=== PATIENT | female | born 1980 | race Caucasian/White ===

== ENCOUNTER 2021-04-10 15:46 | Outpatient (CLI) | payer BC ==
[2021-04-10 18:30] LABS: Hemoglobin 13.3 g/dL (12.0-15.5); Mean Corpuscular HGB CONC 34.1 g/dL (32.0-36.0); Mean Corpuscular Hemoglobin 30.1 pg (27.0-33.0); Mean Corpuscular Volume 88.2 fl (81.6-98.3); Mean Platelet Volume 9.7 fl (7.4-10.4); Platelet Count 291 10x3/uL (150-450); RBC Distribution Width 12.4 % (11.5-14.5); Red Blood Cell (RBC) Count 4.42 10x6/uL (3.90-5.03)
[2021-04-10 18:34] LABS: BHCG - Serum Negative (NEGATIVE); Pregs Control Background? CLEAR/WHITE (CLR/WHITE); Pregs Control Bar Appear? YES (CONTROL BAR)
[2021-04-10 18:36] LABS: Anion Gap 15 mmol/L (10-20); BUN (Urea Nitrogen) 14 mg/dL (7.0-18.7); Calc. Creatinine Clearance 0 mL/min (70-130); Calcium 9.1 mg/dL (7.8-10.44); Carbon Dioxide 25 mmol/L (22-29); Chloride 105 mmol/L (98-107); Glucose 90 mg/dL (70-105); Potassium 4.3 mmol/L (3.5-5.1); Sodium 141 mmol/L (136-145)
[2021-04-11 00:46] LABS: SARS-CoV-2 PCR by NAA Not Detected (NotDetected)
== END 2021-04-10 15:47 | disposition home or self-care (01) ==
LOC: CSHLAB 15:46
PROVIDERS: ATTEND Podiatrist Foot & Ankle Surgery
DX: Z01.812 Encounter for preprocedural laboratory examination (principal); Z20.822 Contact with and (suspected) exposure to COVID-19; T84.197D Other mechanical complication of internal fixation device of bone of left lower leg, subsequent encounter; M25.775 Osteophyte, left foot
CPT/HCPCS: 80048; 84703; 85027; 87635; 93005; 93010; U0003; U0005

== ENCOUNTER 2021-04-15 11:46 | Day surgery (SDC) | payer BC ==
[2021-04-14 09:37] VITALS: BMI 32.5
[2021-04-15] MEDS ORDERED: Lidocaine 1% MPF 2 ML VIAL ONE (12:47)
[2021-04-15] MEDS ORDERED: Bupivacaine PF 0.5% 30 ML VIAL ONE (14:20)
[2021-04-15] MEDS ORDERED: PROPOFOL 20 ML ONE (14:30)
[2021-04-15] MEDS ORDERED: Fentanyl 100 MCG/2 ML VIAL ONE (14:30)
[2021-04-15] MEDS ORDERED: Lidocaine 1% PF 5 ML VIAL ONE (14:30)
[2021-04-15] MEDS ORDERED: CEFAZOLIN 1 GM VIAL ONE (14:35)
[2021-04-15] MEDS ORDERED: Dexamethasone 20 MG/5 ML VIAL ONE (14:52)
[2021-04-15] MEDS ORDERED: ePHEDrine 50 MG/ML VIAL ONE (14:58)
[2021-04-15] MEDS ORDERED: Ondansetron PF 4 MG/2 ML Vial ONE (16:36)
[2021-04-15] MEDS ORDERED: Midazolam HCl 2 mg/2 ml Vial ONE (16:41)
== END 2021-04-15 18:15 | disposition home or self-care (01) ==
LOC: CSHSDC 11:46
PROVIDERS: ATTEND Podiatrist Foot & Ankle Surgery
PROC: 0QBN0ZZ Excision of Right Metatarsal, Open Approach (ICD-10-PCS; principal; 2021-04-15)
DX: M20.11 Hallux valgus (acquired), right foot (principal); D16.31 Benign neoplasm of short bones of right lower limb; T84.197D Other mechanical complication of internal fixation device of bone of left lower leg, subsequent encounter; M25.775 Osteophyte, left foot
CPT/HCPCS: 76000; C1713; J0690; J1100; J2250; J2405; J2704; J3010; J3490; S0020